=== PATIENT | male | born 1980 | race Caucasian/White ===

== ENCOUNTER 2019-03-30 13:45 | Outpatient (REF) | payer MEDICAID, SELFPAY ==
[2019-04-04 09:51] LABS: Benzoylecgonine 122 ng/mL (Cutoff: 50); Cocaine Negative ng/mL (Cutoff: 50); Cocaine Interpretation Positive.
== END 2019-03-30 14:05 ==
LOC: NCHCN 13:45
PROVIDERS: PCP Nurse Practitioner Family; Visit Provider Nurse Practitioner Family
DX: Z79.899 Other long term (current) drug therapy (principal)
CPT/HCPCS: 80353

== ENCOUNTER 2019-12-07 13:22 | Outpatient (REF) | payer MEDICAID, SELFPAY ==
[2019-12-10 05:42] LABS: Codeine Negative ng/mL (Cutoff: 25); Dihydrocodeine Negative ng/mL (Cutoff: 25); Hydrocodone Negative ng/mL (Cutoff: 25); Hydromorphone Negative ng/mL (Cutoff: 25); Morphine 328 ng/mL (Cutoff: 25); Naloxone Negative ng/mL (Cutoff: 25); Norhydrocodone 57 ng/mL (Cutoff: 25); Noroxycodone Negative ng/mL (Cutoff: 25); Noroxymorphone Negative ng/mL (Cutoff: 25)
[2019-12-13 03:32] LABS: Benzoylecgonine 2403 ng/mL (Cutoff: 50); Cocaine Negative ng/mL (Cutoff: 50); Cocaine Interpretation Positive.
== END 2019-12-07 13:42 ==
LOC: NCHCN 13:22
PROVIDERS: PCP Nurse Practitioner Family; Visit Provider Nurse Practitioner Family
DX: G89.29 Other chronic pain (principal)
CPT/HCPCS: 80361; 80353

== ENCOUNTER 2020-06-21 13:28 | Outpatient (REF) | payer MEDICAID, SELFPAY ==
[2020-06-21 15:43] LABS: HCT 42.2 % (40.0-50.0); HGB 14.6 g/dL (13.5-17.5); MCH 32.2 pg (27.0-33.0); MCHC 34.6 % (32.0-36.0); MCV 93.2 fL (80-95); MPV 8.5 fL (8.0-11.0); Platelet Count 284 10^3/uL (130-400); RBC 4.53 10^6/uL (4.36-5.78); RDW-SD 47.8 fL
[2020-06-21 16:03] LABS: Anion Gap 10.9 mmol/L (3-11); BUN 12 mg/dL (7-18); CO2 27.1 mmol/L (21.0-32.0); CREATININE 0.9 mg/dL (0.70-1.30); Calcium 8.8 mg/dL (8.5-10.1); Calculated LDL 137 mg/dL (<100); Chloride 101 mmol/L (98-107); Cholesterol 224 mg/dL (<200); Glucose 88 mg/dL (74-106); HDL Cholesterol 65 mg/dL (40-60); Potassium 3.9 mmol/L (3.5-5.1); Sodium 139 mmol/L (136-145); TSH 2.31 uIU/mL (0.36-3.74); Triglyceride 111 mg/dL (<150)
[2020-06-21 16:17] LABS: Vitamin D 25 Total 16.5 ng/ml (30-100)
[2020-06-26 16:04] LABS: Testosterone, Free 5.45 ng/dL (4.46-17.1); Testosterone, Total 218 ng/dL (240-950)
== END 2020-06-21 13:29 | disposition home or self-care (01) ==
LOC: NCHCN 13:28
PROVIDERS: PCP Nurse Practitioner Family; Visit Provider Nurse Practitioner Family
DX: R68.82 Decreased libido (principal); E29.1 Testicular hypofunction
CPT/HCPCS: 80048; 80061; 82306; 84402; 84403; 85027; 84443

== ENCOUNTER 2021-03-05 18:26 | Outpatient (REF) | payer MEDICAID, SELFPAY ==
[2021-03-05 20:01] LABS: HCT 36.9 % (40.0-50.0); HGB 12.9 g/dL (13.5-17.5); MCH 34.7 pg (27.0-33.0); MCV 99.2 fL (80-95); MPV 8.7 fL (8.0-11.0); Platelet Count 240 10^3/uL (130-400); RBC 3.72 10^6/uL (4.36-5.78); RDW 12.1 % (11.8-14.1); RDW-SD 44.1 fL; WBC 6.02 10^3/uL (4.4-10.8)
[2021-03-11 15:32] LABS: IgA 406 mg/dL (85-499); Interpretation (See Note); Tissue Transglutaminase IgA 1.4 U/mL (<4.0)
== END 2021-03-05 18:27 | disposition home or self-care (01) ==
LOC: NCHCN 18:26
PROVIDERS: PCP Nurse Practitioner Family; Visit Provider Nurse Practitioner Family
DX: R14.0 Abdominal distension (gaseous) (principal)
CPT/HCPCS: 82784; 83516; 85027